=== PATIENT | female | born 1960 | race African-American/Black ===

== ENCOUNTER 2023-04-09 11:39 | Outpatient (REF) | payer MEDICARE, MEDICAID, SELFPAY ==
[2023-04-09 11:45] VITALS: BMI 16.4
[2023-04-09 11:46] VITALS: BP 167/80; PULSE 97; RESP 18; TEMP 36.6; O2SAT 98
== END 2023-04-09 11:40 | disposition home or self-care (01) ==
LOC: HO.MS 11:39
PROVIDERS: PCP Physician Assistant Medical; Visit Provider Ophthalmology
PROC: (CPT 66821; principal; 2023-04-09 15:10)
DX: H26.491 Other secondary cataract, right eye (principal)
CPT/HCPCS: 66821